=== PATIENT | female | born 1950 | race Caucasian/White ===

== ENCOUNTER → 2021-12-04 09:06 | Outpatient (CLI) | payer MEDICARE, SELFPAY ==
--- NOTE | 2021-12-04 09:09 | DI.ECHO.S_ITS ---
[facility] +---------+ : : [address] : [address] : : : : [id number] : : : : Phone: [phone]+ Echocardiogram Report + + :Name: REHAN OATES Study Date: 12/04/2021 Height: 60 in : :[facility] ReadingLocation: Weight: 222 lb : : Gender: Female BSA: 2.0 m2 : :: 1950 Age: 71 yrs BP: 157/83 mmHg: :Reason For Study: Murmur : : Performed By: Maria Eugenia Sanchez : :Referring: KENYA PAIGE : + + Interpretation Summary The left ventricle is normal in size. Left ventricular systolic function appears normal without focal wall motion abnormalities. The ejection fraction is estimated to be 60-65%. Diastolic parameters suggest a pseudonormalization pattern, consistent with probable elevated filling pressures. The right ventricle is normal in size and function. The right ventricular systolic pressure is estimated to be at least 37 mmHg based on an estimated right atrial pressure of 8 mm Hg. The left atrium is mildly dilated. Right atrial size is normal. There is mild mitral regurgitation. There is severe aortic stenosis. The peak aortic velocity is 4.1 m/sec. The calculated aortic valve area is 0.82 cm2. The aortic valve mean gradient is 42 mmHg. There is mild aortic regurgitation. There is no other significant valvular heart disease. The aortic root is normal size. Procedure: A two-dimensional transthoracic echocardiogram with color flow and Doppler was performed. The study quality was technically adequate. There is no prior echocardiogram noted for this patient. The patient was in sinus rhythm with heart rates between 60-76 bpm during the exam. Left Ventricle: The left ventricle is normal in size. There is mild concentric left ventricular hypertrophy. A false chord is noted (normal variant). Left ventricular systolic function appears normal without focal wall motion abnormalities. The ejection fraction is estimated to be 60-65%. Diastolic parameters suggest a pseudonormalization pattern, consistent with probable elevated filling pressures. Right Ventricle: The right ventricle is normal in size and function. Atria: The left atrium is mildly dilated. Right atrial size is normal. There is no Doppler evidence for an interatrial shunt. Mitral Valve: The mitral valve leaflets appear mildly thickened, but open well. There is mild mitral annular calcification. There is mild mitral regurgitation. Aortic Valve: The aortic valve is not well visualized. The aortic valve is moderately calcified. There is severe aortic stenosis. The peak aortic velocity is 4.1 m/sec. The aortic valve mean gradient is 42 mmHg. The calculated aortic valve area is 0.82 cm2. There is mild aortic regurgitation. Tricuspid Valve: The tricuspid valve is normal in structure and function. There is mild tricuspid regurgitation. The right ventricular systolic pressure is estimated to be at least 37 mmHg based on an estimated right atrial pressure of 8 mm Hg. Pulmonic Valve: The pulmonic valve is not well visualized. There is no pulmonic valvular regurgitation. There is no other significant valvular heart disease. Great Vessels: The aortic root is normal size. The dimensions of the ascending aorta are normal. The IVC is dilated (diameter is greater than 2.1 cm) yet it collapses greater than 50% with a sniff. This suggests a right atrial pressure of 8 mm Hg. Pericardium/ Pleura There is no pericardial effusion. There is no pleural effusion. MMode/2D Measurements & Calculations LVIDd: 5.1 cm LVOT diam: 2.1 cm LVIDs: 3.6 cm Ao root diam: 2.6 cm FS: 30.2 % asc Aorta Diam: 3.5 cm IVSd: 1.2 cm Ao Arch Diam (Prox Trans): 2.4 cm LVPWd: 1.0 cm LV diaz. diameter/BSA (cm/m^2): 2.6 LV sys. diameter/BSA (cm/m^2): 1.8 LA A2 area: 22.8 cm2 RA long axis: 4.9 cm LA A4 area: 20.8 cm2 RA area: 18.4 cm2 LA length (vol): 5.4 cm RA vol: 58.6 ml LA vol: 74.2 ml RA : 30.1 ml/m2 LA vol index: 38.0 ml/m2 IVC diam: 2.1 cm RVD1 (basal): 4.2 cm TAPSE: 3.3 cm Doppler Measurements & Calculations Ao V2 max: 406.8 cm/sec LVOT Max Layo: 100.0 cm/sec Ao V2 mean: 314.3 cm/sec LV V1 max P.0 mmHg Ao max P.2 mmHg LV V1 VTI: 27.1 cm Ao mean P.9 mmHg LAY(I,D): 0.79 cm2 Ao V2 VTI: 113.3 cm LAY(V,D): 0.82 cm2 sev ratio: 0.24 LAY indexed to BSA (cm^2/m^2): 0.41 AI P1/2t: 545.4 msec AI dec slope: 228.2 cm/sec2 MV E max layo: 90.7 cm/sec TR max layo: 269.2 cm/sec MV A max layo: 89.4 cm/sec TR max P.0 mmHg MV E/A: 1.0 PA pr(Accel): 37.9 mmHg Med Peak E' Layo: 7.5 cm/sec E/E' med: 12.1 Lat Peak E' Layo: 7.1 cm/sec E/E' lat: 12.9 E/e' average: 12.5 MV dec time: 0.18 sec SV(LVOT): 90.0 ml Reading Physician:01:15 PM
== END ==
PROVIDERS: PCP Internal Medicine; Referring Provider Internal Medicine; Visit Provider Internal Medicine
DX: R01.1 Cardiac murmur, unspecified (principal); I08.3 Combined rheumatic disorders of mitral, aortic and tricuspid valves
CPT/HCPCS: 93306

== ENCOUNTER → 2024-03-29 12:25 | Outpatient (CLI) | payer MEDICARE, SELFPAY ==
--- NOTE | 2024-03-29 12:27 | DI.ECHO.S_ITS ---
[facility]+ [facility] : : [address] : [address] [address] : : [id number] : : Phone: [phone] Echocardiogram Report + + :Name: REHAN OATES Study Date: 03/29/2024 Height: 60 in : :Hospital ReadingLocation: Weight: 207 lb : : Gender: Female BSA: 1.9 m2 : :: 1950 Age: 73 yrs BP: 150/91 mmHg: :Reason For Study: S/P TAVR : :Ordering Physician: KENDRA, : :MIKE Performed By: Maria Eugenia Sanchez : :Referring: MIKE GARDNER : + + Interpretation Summary The left ventricle is normal in size and wall thickness. The left ventricular ejection fraction is normal. The ejection fraction is estimated to be 60-65%. No significant change in LVEF from the previous study. The right ventricle is normal in size and function. There is mild mitral regurgitation. There is a bioprosthetic aortic valve. S/P 23 Rodriguez TOMMY 3 TAVR valve on June 04, 2022. The prosthetic aortic valve is well-seated. The peak aortic velocity is 3.6 m/sec. Previously 3.62 m/s. The aortic valve mean gradient is 32 mmHg. No aortic regurgitation is present. Post TAVR, echo on June 05, 2022 showed peak aortic velocity 3.56 m/s and mean gradient 28 mmHg. There is mild tricuspid regurgitation. The right ventricular systolic pressure is estimated to be at least 27 mmHg based on an estimated right atrial pressure of 3 mm Hg. Procedure: A two-dimensional transthoracic echocardiogram with color flow and Doppler was performed. The study quality was technically adequate. Comparison is made with the echocardiogram of 12/30/2022. The patient was in sinus rhythm with heart rates between 71-81 bpm during the exam. Left Ventricle: The left ventricle is normal in size and wall thickness. There is no thrombus. A false chord is noted (normal variant). The ejection fraction is estimated to be 60-65%. The left ventricular ejection fraction is normal. There are no focal wall motion abnormalities. MV E/A: 0.72. Right Ventricle: The right ventricle is normal in size and function. Atria: The left atrium is moderately dilated. There has been no significant change since the previous study. Right atrial size is normal. There is no Doppler evidence for an interatrial shunt. Mitral Valve: The mitral valve leaflets appear mildly thickened, but open well. There is mild mitral annular calcification. The mitral valve chordae are thickened and/or calcified. There is mild mitral regurgitation. Aortic Valve: There is a bioprosthetic aortic valve. The prosthetic aortic valve is well-seated. The peak aortic velocity is 3.6 m/sec. The aortic valve mean gradient is 32 mmHg. The peak aortic velocity on the previous exam was 3.62 m/sec. No aortic regurgitation is present. Tricuspid Valve: The tricuspid valve is normal. There is mild tricuspid regurgitation. The right ventricular systolic pressure is estimated to be at least 27 mmHg based on an estimated right atrial pressure of 3 mm Hg. Pulmonic Valve: The pulmonic valve is not well visualized. There is no pulmonic valvular regurgitation. Great Vessels: The aortic root is normal size. The ascending aorta is normal in size. The IVC is of normal diameter and collapses greater than 50% with a sniff. This suggests a low right atrial pressure of 3 mm Hg. Pericardium/ Pleura There is no pericardial effusion. There is no pleural effusion. MMode/2D Measurements & Calculations LVIDd: 4.2 cm LVOT diam: 2.0 cm LVIDs: 2.9 cm asc Aorta Diam: 3.5 cm FS: 31.5 % Ao Arch Diam (Prox Trans): 3.3 cm IVSd: 0.99 cm LVPWd: 1.0 cm LV diaz. diameter/BSA (cm/m^2): 2.2 LV sys. diameter/BSA (cm/m^2): 1.5 LA A2 area: 24.4 cm2 RA long axis: 4.8 cm LA A4 area: 19.5 cm2 RA area: 17.5 cm2 LA length (vol): 4.7 cm RA vol: 54.6 ml LA vol: 85.3 ml RA : 28.8 ml/m2 LA vol index: 45.0 ml/m2 IVC diam: 1.4 cm RVD1 (basal): 3.8 cm RVD2 (mid): 2.7 cm TAPSE: 2.4 cm Doppler Measurements & Calculations Ao V2 max: 362.2 cm/sec LVOT Max Layo: 133.3 cm/sec Ao V2 mean: 256.4 cm/sec LV V1 max P.1 mmHg Ao max P.1 mmHg LV V1 VTI: 29.6 cm Ao mean P.1 mmHg LAY(I,D): 1.2 cm2 Ao V2 VTI: 76.7 cm LAY(V,D): 1.1 cm2 sev ratio: 0.39 LAY indexed to BSA (cm^2/m^2): 0.61 MV E max layo: 70.2 cm/sec TR max layo: 243.9 cm/sec MV A max layo: 97.3 cm/sec TR max P.8 mmHg MV E/A: 0.72 PA V2 max: 121.7 cm/sec Lat Peak E' Layo: 7.4 cm/sec PA V2 mean: 85.1 cm/sec E/E' lat: 9.5 PA mean P.2 mmHg MV dec time: 0.24 sec PA pr(Accel): 25.1 mmHg SV(LVOT): 89.1 ml Reading Physician:12:19 PM
== END ==
PROVIDERS: PCP Internal Medicine; Referring Provider Internal Medicine Cardiovascular Disease; Visit Provider Internal Medicine Cardiovascular Disease
DX: Z95.2 Presence of prosthetic heart valve (principal); I08.1 Rheumatic disorders of both mitral and tricuspid valves
CPT/HCPCS: 93306